=== PATIENT | male | born 1950 | race Caucasian/White ===

== ENCOUNTER 2016-06-21 15:32 | Inpatient (IN) | payer OTHER ==
[~2016-06-21] VITALS: Ht 182.9 cm; Wt 90.3 kg
--- NOTE | ~2016-06-21 | DS ---
PATIENT:SATNAM CASTILLO :46 MEDICAL RECORD: [id number] DISCHARGE SUMMARY ADMISSION DATE: 06/21/16 DISCHARGE DATE: 06/24/16 DISCHARGE DIAGNOSES: 1. Streptococcal cellulitis, left ankle. 2. Hypertension, uncontrolled. 3. Nicotine addiction. CONSULTANTS: Dr. Ruff. HOSPITAL COURSE: A 66-year-old male admitted with increasing erythema and severe pain above his left ankle medially. He denied any trauma or insect bites. Initially, felt to have gout, but he developed fever, advancing erythema and some dark, necrotic-appearing skin changes. He was admitted, placed on IV Rocephin and vancomycin. The patient gradually improved. X-ray showed no evidence of osteomyelitis. Dr. Ruff from [place] was consulted. Bullae formation did occur with some drainage from the bullae. At this time, currently, the cultures are pending. The patient has dramatically improved. Erythema has decreased in size approximately 50%. He is able to bear weight now with minimal pain. Blood pressure did get quite elevated, 180/95, and medications have been adjusted. He was discharged today on improved condition, has close followup in my office in [address] Ruff recommended Keflex 500 mg q.8 hours for the next week until his wound is healed. He will also use topical Neosporin. Dressing changes were reviewed with his today, will be done t.i.d. DISCHARGE MEDICATIONS: Keflex 500 mg p.o. t.i.d. for 1 week, hydrocodone ____ q.4 hours for pain, Norvasc 5 mg p.o. daily, lisinopril 20 mg p.o. daily, Neosporin ophthalmic ointment apply topically t.i.d. to wound and cover with 4 x 4, omega-3 fish oil 1 cap daily, aspirin 81 mg daily. DIET: Regular. ACTIVITY: Progress as tolerated. Return to clinic to see me in 6 days. TRANSINT:[id number] Voice Confirmation ID: [id number] DOCUMENT ID: [id number] BRADLY MYRICK MD CC: [id number] DICTATION DATE: 06/24/16 0747 SPRAY BOOTH OPERATOR: 06/24/16 1033 DIS IN 06/24/16 [id number] [place] [address]
[~2016-06-21 15:32] MED LIST: LOTREL 5/20 MG1 CAP; PRILOSEC20 MG PO; SURFAK240 MG PO; VICODIN 5/500 T1 TAB PO
[2016-06-21] MEDS ORDERED: FISH OIL 1,0001 CA1 PO (16:10)
[2016-06-21] MEDS ORDERED: INDOCIN25 MG PO (16:10)
[2016-06-21] MEDS ORDERED: BAYER CHEWABLE81 MG PO (16:11)
[2016-06-21] MEDS ORDERED: MUCINEX DM ER1 EAC1 PO (16:12)
[2016-06-21 16:55] VITALS: BP 124/77; BMI 27.0
[2016-06-21 17:44] LABS: ERYTHROCYTE SEDIMENTATION RATE 70 mm/hr (0-20)
[2016-06-21 20:00] VITALS: BP 155/96
--- NOTE | 2016-06-21 21:00 | NUR ---
STUDENTS AT BEDSIDE WITH INSTRUCTOR STARTING AN IV. PATIENT DENIES OTHER NEEDS AT THIS TIME. BED IN LOWEST POSITION AND CALL LIGHT WITHIN REACH. ENCOURAGED PATIENT TO CALL IF HE HAS FURTHER NEEDS.
[2016-06-22] VITALS: BP 152/95
[2016-06-22 04:00] VITALS: BP 145/90
[2016-06-22 07:47] LABS: BASOPHILS 0.3 % (0.0-2.0); HEMATOCRIT 42.4 % (42.0-54.0); HEMOGLOBIN 14.4 g/dL (13.5-17.5); IMMATURE GRANULOCYTES 1.5 % (0-5); LYMPHOCYTES 15.5 % (15-50); MCH 33.3 pg (26.0-34.0); MCV 97.9 fL (80.0-100.0); MEAN PLATELET VOLUME 9.7 fL (7.4-10.4); MONOCYTES 13.1 % (2-11); NEUTROPHILS 68.6 % (40-80); RBC 4.33 10x6/uL (4.20-6.10); RDW 12.9 % (11.5-14.5); WBC 12.9 10x3/uL (4.8-10.8)
[2016-06-22 07:48] LABS: PLATELET COUNT 289 10x3/uL (130-400)
--- NOTE | 2016-06-22 07:51 | NUR ---
PT AOX4 RESP EVEN AND NONLABORED PT DENIES NEEDS AT THIS TIME IV TO RIGHT FOREARM PULLED OUT BY PT. WILL RESTART ONE SOON POSSIBLE. BED AT LOWEST SETTING CALL LIGHT WITHIN REACH WILL CONTINUE TO MONITOR
[2016-06-22 08:01] LABS: CALC OSMOLALITY 279 mosm/kg (275-300); CALCIUM 9.6 mg/dL (8.5-10.1); CARBON DIOXIDE 28.8 mmol/L (21.0-32.0); CHLORIDE - SERUM 105 mmol/L (98-107); GLUCOSE 118 mg/dL (74-106); SODIUM 140 mmol/L (136-145); UREA NITROGEN 12 mg/dL (7-18); eGFR NON AFRICAN AMERICAN 79 mL/min (90-120)
[2016-06-22 09:09] VITALS: BP 139/86
[2016-06-22 11:41] VITALS: BP 180/95
[2016-06-22 14:31] VITALS: Ht 182.9 cm; Wt 90.3 kg
--- NOTE | 2016-06-22 14:39 | NUR ---
Patient Name: SATNAM CASTILLO Admission Status: Urgent Accout number: [id number] Admission Date: 06-21-2016 : 1950 Admission Diagnosis: Attending: MOON Current LOS: 1 Anticipated DC Date: 06-25-2016 Planned Disposition: Home Primary Insurance: [facility] Discharge Planning Comments: CM MET WITH PATIENT REGARDING D/C NEEDS AND PLANS. PATIENT STATED HE LIVES WITH HIS AND SHE WILL DRIVE HIM HOME AT DISCHARGE. PATIENT HAS 1 STEP W/O RAIL TO ENTER HOME AND NO STAIRS INSIDE. PATIENTS PCP IS DR. MYRICK AND PHARMACY IS [facility] [address] [facility]. PATIENT IS INDEPENDENT WITH HIS CARE AND HAS NO DME AT HOME. PATIENT HAS NOT HAD HOME HEALTH AND DOES NOT WANT IT AT DISCHARGE. CM WILL CONTINUE TO FOLLOW PATIENT WITH D/C NEEDS AND PLANS. PCP [facility] [address] [facility]- [phone] LUPILLO THOMPSON () [phone] Geriatric Assistant: Brandi Johnson Is the patient Alert and Oriented? Yes 0 * How many steps to enter\exit or inside your home? 1 W/RAILS 0 * PCP DR. MYRICK 0 * [facility] [address] [facility] 0 * Preadmission Environment Home with Family 0 * ADLs Independent 0 * Equipment None 0 * List name and contact numbers for known caregivers / representatives who currently or will assist patient after discharge: ARNALDO THOMPSON () [phone] * Community resources currently utilized None 0 * Additional services required to return to the preadmission environment? Yes 0 * Can the patient safely return to the preadmission environment? Yes 0 * Has this patient been hospitalized within the prior 30 days at any hospital? No 0 Grand Total: 0
--- NOTE | 2016-06-22 19:00 | NUR ---
PATIENT IN BED WATCHING TV. HOB 40 DEGREES. AAOX4. RR EVEN AND UNLABORED. 0 S/S OF DISTRESS. STATES PAIN IS A 3/10. IV TO RIGHT FA PATENT WITH NO REDNESS OR SWELLING. SRX1. BED LOW. CALL LIGHT WITHIN REACH.
[2016-06-22 19:51] VITALS: BP 161/96
--- NOTE | 2016-06-22 22:00 | NUR ---
ASSESSMENT COMPLETE. PATIENT STATES PAIN IS THE SAME BUT DOES NOT WANT PAIN MEDICATION. AT BEDSIDE.
[2016-06-22 23:41] VITALS: BP 180/95
--- NOTE | 2016-06-23 02:23 | NUR ---
PATIENT SLEEPING WITH NO DISTRESS NOTED. CALL LIGHT WITHIN REACH.
[2016-06-23 03:46] LABS: CALC OSMOLALITY 278 mosm/kg (275-300); CALCIUM 9.5 mg/dL (8.5-10.1); CHLORIDE - SERUM 103 mmol/L (98-107); CREATININE - SERUM 0.9 mg/dL (0.6-1.3); GLUCOSE 123 mg/dL (74-106); POTASSIUM - SERUM 3.9 mmol/L (3.5-5.1); SODIUM 140 mmol/L (136-145); UREA NITROGEN 11 mg/dL (7-18); VANCOMYCIN - TROUGH 7.8 ug/mL (10.0-20.0); eGFR NON AFRICAN AMERICAN 89 mL/min (90-120)
[2016-06-23 04:01] VITALS: BP 152/95
[2016-06-23 05:21] LABS: APPEARANCE CLEAR (CLEAR); COLOR STRAW (YELLOW); LEUKOCYTE ESTERASE NEGATIVE (NEGATIVE); NITRITE NEGATIVE (NEGATIVE); PROTEIN NEGATIVE (NEGATIVE); SPECIFIC GRAVITY 1.005 (1.005-1.020)
[2016-06-23 05:22] LABS: BILIRUBIN NEGATIVE (NEGATIVE); GLUCOSE NEGATIVE (NEGATIVE); KETONE NEGATIVE (NEGATIVE); UROBILINOGEN NORMAL (NORMAL)
--- NOTE | 2016-06-23 07:32 | HP ---
PATIENT: SATNAM CASTILLO MEDICAL RECORD: [id number] ACCOUNT: [id number] LOCATION:D.[place] : [birth year] ADMISSION DATE: 06/21/16 HISTORY AND PHYSICAL EXAMINATION REASON FOR ADMISSION: Cellulitis of the left lower extremity, failing outpatient therapy. HISTORY OF PRESENT ILLNESS: The patient is a 66-year-old male smoker, who noticed onset of redness and severe pain in his left ankle and just above the ankle on 06/12/2016. He came to our office on the . He was afebrile, but had heat and warmth over the left medial malleolus and just above it. There was no other discoloration. There was no sign of any skin breakdown. They thought he might have gout, though his uric acid level returned at 5.6. He was placed on indomethacin and allopurinol, but did not improve and came back today. He is having more pain and swelling in the leg. He says his right ankle is starting to hurt some now. He denies any fevers and he might have some night sweats. He denies any injury as well. PAST MEDICAL HISTORY: Carpal tunnel syndrome, history of lumbar discitis, essential hypertension, and longstanding nicotine abuse. PAST SURGICAL HISTORY: Had an inguinal hernia repair on the left in 2011. He had a normal noninvasive cardiac stress test in 2005. FAMILY HISTORY: His father at 88, had asthma and COPD, and mother at 83 from CHF. SOCIAL HISTORY: He is a 1 to 2-pack a day smoker for 50 years. He denies heavy alcohol use. 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 He is and has grandchildren. HOME MEDICATIONS: Amlodipine/benazepril /, one p.o. q.a.m. He is on Indocin 25 mg t.i.d. for the last 4 days. Also, he has been on terbinafine 250 mg p.o. daily. ALLERGIES: PENICILLIN CAUSING RASH. REVIEW OF SYSTEMS: GENERAL: He has been a litle rundown since onset of ankle issues, but denies unintentional weight loss, fever or poor appetite. HEENT: No recent new visual change, sinus congestion, sore throat or hearing difficulty. RESPIRATORY: He has chronic cough, but nonproductive. He has had no sputum production or shortness of breath. He had pulmonary function test 2 years ago. CARDIAC: No exertional chest pain, claudication or edema. GASTROINTESTINAL: No nausea, vomiting, change in stools or blood per rectum. GENITOURINARY: Has nocturia once nightly. No dysuria. ENDOCRINE: Denies polyuria, polydipsia, heat or cold intolerance. NEUROLOGIC: No history of stroke, TIA, or vascular headaches. INTEGUMENT: He has erythematous painful rash on his left inner ankle above the ankle circumferentially. It extends to the mid calf. It is very tender to the touch. There was no breakdown of skin noted, but there is a very unusual appearing macular black subcutaneous discoloration that is irregular, 2.5 x 2.5 cm on 1 macule and the other 2 are approximately 0.5 x 0.5. A total of 3 HISTORY AND PHYSICAL [id number] CASTILLOSATNAM macular discolorations. Neurologically, he is grossly intact. LABORATORY DATA: A stat lab in the office showed a white count of 14.6 thousand with 67% neutrophils, H&H is 14.7 and 43.5 respectively, and platelet count is 340,000. BMP is normal. ASSESSMENT: 1. Atypical cellulitis, left lower extremity, failing outpatient therapy. 2. Nicotine abuse. 3. Hypertension. PLAN: The patient is admitted for IV antibiotics to include, but not limited to vancomycin. HE DOES HAVE A PENICILLIN ALLERGY. We will have ID consult as well. Further workup pending clinical course. TRANSINT:[id number] Voice Confirmation ID: [id number] DOCUMENT ID: [id number] BRADLY MYRICK MD at 0732 CC: [id number] DICTATION DATE: 06/21/16 1335 FOREPART REDUCER: 06/21/16 1935 ADM IN [facility] [address] [place] [address]
[2016-06-23 08:23] VITALS: BP 165/101
--- NOTE | 2016-06-23 08:28 | NUR ---
AWAKE AND ALERT. ORIENTED X3. NO C/O AT THIS TIME. LUNGS ARE CLEAR BILATERALLY, NO COUGH NOTED. SKIN IS INTACT WITHOUT REDNESS EXCEPT REDNESS TO RIGHT ANKLE AREA AND REDNESS WITH 2 EMILIA SIZED BLACK BLISTERS. CULTURE OBTAINED FROM LEFT ANKLE AND SENT TO LAB. GIVEN SCHEDULED BP MEDS AT THIS TIME. WILL MONITOR. AT BEDSIDE. DENIES NEEDS.
--- NOTE | 2016-06-23 09:30 | NUR ---
RECHECK ON BP 147/90. WILL CONTINUE TO MONITOR.
--- NOTE | 2016-06-23 12:30 | NUR ---
MANUAL BP 146/102. GIVEN O.1 MG CLONIDIN FOR SAME. WILL MONITOR.
[2016-06-23 13:05] VITALS: BP 163/103
[2016-06-23 16:12] VITALS: BP 152/95
--- NOTE | 2016-06-23 16:30 | NUR ---
IV TO RIGHT FOREARM LEAKING. RESITED TO RIGHT FOREARM AFTER 2 ATTEMPTS WITH 20G. TOLERATED WITHOUT C/O DISCOMFORT.
[2016-06-23 19:00] VITALS: BP 148/94
--- NOTE | 2016-06-23 19:34 | NUR ---
ATE ABOUT HALF OF SUPPER. VISITORS AT BEDSIDE. NO CHANGES NOTED. DENIES NEEDS.
--- NOTE | 2016-06-24 00:58 | NUR ---
REC'D PATIENT WALKING AROUND ROOM. DAUGHTER WAS AT BEDSIDE. NO DISTRESS NOTED. DENIED PAIN AT THIS TIME. IS WANTING SOME COFFEE. DENIED FURTHER NEEDS AT THIS TIME. IS CONCERN ABOUT BLD PRESSURE. WILL MONITOR THROUGHOUT THE NIGHT. BED LOW, LOCKED, CALL LIGHT IN REACH.
--- NOTE | 2016-06-24 03:18 | NUR ---
PATIENT IS RESTING IN BED. IS AT BEDSIDE. DENIES PAIN AT THIS TIME. DENIES FURTHER NEEDS AT THIS TIME. NO DISTRESS NOTED. INSTRUCTED TO CALL IF NEEDED ANYTHING. BED LOW, LOCKED, CALL LIGHT IN REACH.
[2016-06-24 04:00] VITALS: BP 157/98
--- NOTE | 2016-06-24 06:24 | NUR ---
PATIENT RESTING IN BED. AT BEDSIDE. DENIES PAIN AT THIS TIME. DENIES FURTHER NEEDS AT THIS TIME. NO DISTRESS NOTED. INSTRUCTED TO CALL IF NEEDED ANYTHING. BED LOW, LOCKED, CALL LIGHT IN REACH.
[2016-06-24] MEDS ORDERED: NORVASC5 MG PO (07:40)
[2016-06-24] MEDS ORDERED: LISINOPRIL10 MG PO (07:41)
[2016-06-24] MEDS ORDERED: HYDROCODON-ACE1 EAC7 PO (07:42)
[2016-06-24] MEDS ORDERED: NEOSPORIN OINTM15 GM TP (07:44)
--- NOTE | 2016-06-24 07:47 | NUR ---
AWAKE AND ALERT. ORIENTED X3. NO C/O AT THIS TIME. AT BEDSIDE. LUNGS ARE CLEAR BILATERALLY, NO COUGH NOTED. SKIN IS INTACT WITHOUT REDNESS EXCEPT REDNESS TO RIGHT ANKLE WHICH IS IMPROVED FROM YESTERDAY AND REDNESS WITH BLACKENED BLISTERS TO LEFT ANKLE. IV TO RIGHT FOREARM PATENT WITHOUT REDNESS AT INSERTION SITE. DENIES NEEDS.
[2016-06-24] MEDS ORDERED: KEFLEX500 MG PO (07:48)
--- NOTE | 2016-06-24 08:50 | NUR ---
DISCHARGED TO HOME AMBULATORY [facility] . DISCHARGE INSTRUCTIONS GIVEN BOTH VERBALLY AND WRITTEN. ALL QUESTIONS ANSWERED. NEW PRESCRIPTIONS EFAXED TO PHARMACY OF CHOICE. IV TO RIGHT FOREARM D/C WITH CATHETER INTACT.
[2016-06-24 09:29] VITALS: BP 170/106
--- NOTE | 2016-06-24 15:42 | NUR ---
LATE ENTRY: PATIENT DISCHARGED HOME TODAY - FAMILY DRIVING HIM. PATIENT REF. HOME HEALTH AND HAD NO OTHER NEEDS.
== END 2016-06-24 08:50 | disposition home or self-care (01) | DRG 603 ==
LOC: D.MS 15:32
PROVIDERS: ADMIT Family Medicine
DX: L03.116 Cellulitis of left lower limb (principal); B95.5 Unspecified streptococcus as the cause of diseases classified elsewhere; I10 Essential (primary) hypertension; B35.1 Tinea unguium; F17.200 Nicotine dependence, unspecified, uncomplicated

== ENCOUNTER 2017-07-21 13:00 | Inpatient (IN) | payer OTHER, MEDICARE ==
[~2017-07-21] VITALS: Ht 182.9 cm; Wt 93.0 kg
--- NOTE | ~2017-07-21 | OP ---
PATIENT NAME: SATNAM CASTILLO MEDICAL RECORD: [id number] :46 LOCATION:D. D.2220 ADMISSION DATE:07/21/17 SURGEON: HOANG BHAGAT MD DATE OF OPERATION: 07/25/2017 This is an assistance note. I assisted Dr. PRUDENCE Jordan with placement of a colonic stent under endoscopic guidance as well as fluoroscopic guidance. My involvement of the case was minor. It involved some manipulation of the colonoscope. Some advancement of the wires. Some advancement of the stent. I attempted balloon dilation of the colonic stent. TRANSINT:[id number] Voice Confirmation ID: [id number] DOCUMENT ID: [id number] HOANG BHAGAT MD at 1227 CC: [id number] DICTATION DATE: 07/25/17 1249 FUR SEWER: 07/25/17 1306 DIS IN 07/25/17 [id number] [place] [address]
--- NOTE | ~2017-07-21 | OP ---
PATIENT NAME: SATNAM CASTILLO MEDICAL RECORD: [id number] :[birth year] LOCATION:D.MS [place] ADMISSION DATE:07/21/17 SURGEON: SEBASTIÁN STEEL MD DATE OF OPERATION: 07/25/2017 SURGEON: Sebastián Steel MD (JJ) PRECINCT POLICE SERGEANT: Dr. Efrain Jones PREOPERATIVE DIAGNOSIS: Obstructing metastatic colon cancer. POSTOPERATIVE DIAGNOSIS: Obstructing metastatic colon cancer. PROCEDURE PERFORMED: Colonoscopy with biopsy and fluoroscopic-guided colonic stent placement. ANESTHESIA: General. COMPLICATIONS: None. SPECIMENS: Frozen section and permanent specimen biopsies of colonic mass at 110 cm. Case was grossly contaminated. OPERATIVE COURSE: After consent was obtained, the patient was taken to the operating room and placed in the supine position on the operating table. Next, general anesthesia was given. A timeout was taken to confirm the correct patient and procedure. The patient was then placed into lithotomy with stirrups. Digital rectal exam was performed. No masses were found. The colonoscope was inserted in the rectum. The rectum was insufflated under direct endoscopic guidance. The scope was advanced to approximately 110 cm with fluoroscopy at the splenic flexure. A large ulcerated obstructing tumor was identified. Multiple cold biopsies were taken. It was sent for both permanent pathology and frozen section. Next, a 0.035 StiffFlex wire was passed through the colonoscope. The wire was available to be passed across the obstruction under fluoroscopic guidance. The wire was followed to the hepatic flexure. At this time, the colonoscope was removed. A colorectal WallFlex stent was then delivered across the wire 25 x 120 mm. Under fluoroscopic guidance, the stent was deployed across the lesion and the delivery device was removed as well as the wire. The scope was then advanced. The scope was then placed back into the rectum. It was advanced to the splenic flexure. The scope was advanced through the colonic stent. At this time, the scope was used to decompress the colon as it was withdrawn. At the end of the case, all needle and instrument counts were correct. No complications occurred. The patient was extubated and transferred to the PACU in stable condition. TRANSINT:[id number] Voice Confirmation ID: [id number] DOCUMENT ID: [id number] OPERATIVE REPORT [id number] SATNAM CASTILLO SEBASTIÁN STEEL MD at 1520 CC: [id number] DICTATION DATE: 07/25/17 1239 LINE PREP COOK: 07/25/17 1305 ADM IN [facility] [address] [id number]
--- NOTE | ~2017-07-21 | HP ---
PATIENT: SATNAM CASTILLO MEDICAL RECORD: [id number] ACCOUNT: [id number] LOCATION:D.[facility] [place] : [birth year] ADMISSION DATE: 07/21/17 HISTORY AND PHYSICAL EXAMINATION REASON FOR ADMISSION: Severe left lower quadrant abdominal pain. HISTORY OF PRESENT ILLNESS: The patient is a 67-year-old male who had shingles in his left lower quadrant, approximately 3 months ago. He had been on gabapentin, but developed some visual disturbance when he had stopped it 5 months ago. He had felt well until yesterday, developed onset of some fairly significant left lower quadrant and to left mid axillary line pain. He had normal BM the day before, had no fever. The pain became more intense such that walking cause the pain to increase. Any coughing or sneezing caused the pain to be worse. He could barely touch his abdomen without excruciating pain. He denies dysuria. He came to the office for this reason and was exquisitely tender on exam of the left lower quadrant with rebound, peritoneal signs. White count was 17,000 with left shift and normal UA. For that reason, he has been admitted to the hospital for severe left lower quadrant abdominal pain and acute abdomen. PAST MEDICAL HISTORY: Cellulitis of the left lower extremity on 06/21, history of carpal tunnel syndrome, lumbar discitis, essential hypertension, longstanding nicotine use. PAST SURGICAL HISTORY: Inguinal hernia repair of the left in 2011. Noninvasive cardiac stress test in 2005. FAMILY HISTORY: Mother at 83 from CHF. Father at 88, had asthma and COPD. 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 He is 1-2 pack a day smoker for 51 years. He denies heavy alcohol use. He is and has grandchildren. HOME MEDICATIONS: Amlodipine/benazepril 5/20 one p.o. b.i.d., potassium chloride 10 mEq a day, Dyazide 1 q.a.m., clonidine 0.1 mg p.o. q.6. hours p.r.n. systolic blood pressure over 170. ALLERGIES: BETAMETHASONE and PENICILLIN. REVIEW OF SYSTEMS: CONSTITUTIONAL: Significantly felt well until yesterday. No fever. HEENT: No recent visual change, sinus congestion, or sore throat. RESPIRATORY: No SOB or cough. CARDIAC: No exertional chest pain, claudication, or edema. GASTROINTESTINAL: He has had no nausea or change in stools. He has had exquisite pain to his left lower quadrant and up to left mid quadrant on the left side. He has noticed pain with walking. GENITOURINARY: No dysuria. He has nocturia once nightly. ENDOCRINE: Denies polyuria, polydipsia, heat or cold intolerance. NEUROLOGIC: No history of stroke, TIA, or vascular headaches. INTEGUMENT: No rash or itching. PSYCHIATRIC: Denies depressed mood. HISTORY AND PHYSICAL [id number] SATNAM CASTILLO PHYSICAL EXAMINATION: VITAL SIGNS: Temperature is 99 degrees Fahrenheit, blood pressure 122/64, weight is 207. Height 72 inches, BMI 28.1, heart rate 80. HEENT: Normocephalic. Eyes are clear. NECK: No bruits or masses. CHEST: Clear. HEART: Without murmur. ABDOMEN: Slightly protuberant with hypoactive bowel sounds. He has a referred pain on palpation of the right lower quadrant into the left lower quadrant. He has exquisite tender to touch and mild palpation in the left lower quadrant in the sigmoid area. No rebound is noted. He has hyperpigmentation from previous shingles in the left lower quadrant into the left CVA angle, but he is not tender here or have new blisters arising. NEUROLOGICAL: Grossly intact. EXTREMITIES: No CC&E. LABORATORY DATA: His white count is elevated with 17,390 white cells with 84% neutrophils, H&H 11.2 and 34.4, platelet count 370,000. His urinalysis is dark yellow, specific gravity is 1.015, protein is 30 mg per deciliter. Urine shows 0-2 red and white cells, trace bacteria. Flat and upright abdominal series shows decreased air throughout the abdominal cavity. No evidence of obstruction, some stool in the pelvis and left lower quadrant. ASSESSMENT: 1. Acute abdomen, left lower quadrant pain, etiology unknown. 2. Leukocytosis. 3. Subacute shingles. 4. Hypertension. 5. Smoker. 6. History of cellulitis of right lower extremity, resolved. PLAN: The patient will be admitted and held n.p.o., placed on IV fluids, placed on IV Levaquin and Flagyl. A stat CT scan of the abdomen and pelvis with contrast with results to follow. TRANSINT:[id number] Voice Confirmation ID: [id number] DOCUMENT ID: [id number] BRADLY MYRICK MD at 1214 CC: [id number] DICTATION DATE: 07/21/17 1352 SOCIAL INSURANCE ANALYST: 07/21/17 1417 DIS IN 07/25/17 [facility] [address] [id number]
[~2017-07-21 13:00] MED LIST changes: +BAYER CHEWABLE81 MG PO; +FISH OIL 1,0001 CA1 PO; +HYDROCODON-ACE1 EAC7 PO; +INDOCIN25 MG PO; +KEFLEX500 MG PO; +LISINOPRIL10 MG PO; +MUCINEX DM ER1 EAC1 PO; +NEOSPORIN OINTM15 GM TP; +NORVASC5 MG PO
[2017-07-21] MEDS ORDERED: ZESTRIL20 MG PO (15:16)
[2017-07-21] MEDS ORDERED: VITAMIN B COMPL1 TAB PO (15:17)
[2017-07-21 15:18] VITALS: BP 141/92; BMI 27.8
[2017-07-21 18:26] LABS: APTT 32.5 SECONDS (22.8-39.4); INR 1.11 (0.85-1.17); PROTIME 13.9 SECONDS (11.6-15.0)
[2017-07-21 18:43] LABS: ALBUMIN 2.7 g/dL (3.4-5.0); BILIRUBIN - DIRECT 0.14 mg/dL (0.00-0.30); BILIRUBIN - INDIRECT 0.34 mg/dL (0.00-1.00); BILIRUBIN - TOTAL 0.48 mg/dL (0.2-1.3); PROTEIN - SERUM 6.7 g/dL (6.4-8.2)
[2017-07-21 22:29] VITALS: BP 148/96
[2017-07-22 04:53] VITALS: BP 133/83
[2017-07-22] MEDS ORDERED: LOTREL 5/20 MG1 CAP (09:25)
[2017-07-22 09:30] VITALS: BP 135/91
[2017-07-22 12:30] VITALS: BMI 27.8
[2017-07-22 13:03] VITALS: BP 149/104
[2017-07-22 14:35] VITALS: BP 134/81
[2017-07-22 20:00] VITALS: BP 123/80
[2017-07-23] VITALS: BP 144/94
[2017-07-23 04:00] VITALS: BP 147/96
[2017-07-23 06:39] LABS: CALC OSMOLALITY 281 mosm/kg (275-300); CALCIUM 8.8 mg/dL (8.5-10.1); CARBON DIOXIDE 27.7 mmol/L (21.0-32.0); CHLORIDE - SERUM 106 mmol/L (98-107); CREATININE - SERUM 0.8 mg/dL (0.6-1.3); GLUCOSE 116 mg/dL (74-106); SODIUM 141 mmol/L (136-145); UREA NITROGEN 12 mg/dL (7-18); eGFR NON AFRICAN AMERICAN > 90 mL/min (90-120)
[2017-07-23 07:42] VITALS: BP 132/88
[2017-07-23 08:17] VITALS: Ht 182.9 cm; Wt 93.0 kg
[2017-07-23 12:18] VITALS: BP 139/92
[2017-07-23 15:49] VITALS: BP 134/83
[2017-07-23 20:00] VITALS: BP 141/101
[2017-07-24] VITALS: BP 157/92
[2017-07-24 04:00] VITALS: BP 159/97
[2017-07-24 05:40] LABS: BASOPHILS 0.2 % (0-2); EOSINOPHILS 0 % (0-7); IMMATURE GRANULOCYTES 1.6 % (0-5); LYMPHOCYTES 10.3 % (15-50); MCH 28.7 pg (26.0-34.0); MCHC 32.3 g/dL (31.0-37.0); MCV 88.8 fL (80.0-100.0); NEUTROPHILS 77.9 % (40-80); PLATELET COUNT 317 10x3/uL (130-400); RBC 3.49 10x6/uL (4.20-6.10); RDW 16.4 % (11.5-14.5); WBC 12.8 10x3/uL (4.8-10.8)
[2017-07-24 05:42] LABS: CALC OSMOLALITY 256 mosm/kg (275-300); CALCIUM 8.7 mg/dL (8.5-10.1); CARBON DIOXIDE 27.3 mmol/L (21.0-32.0); CHLORIDE - SERUM 101 mmol/L (98-107); CREATININE - SERUM 0.8 mg/dL (0.6-1.3); GLUCOSE 111 mg/dL (74-106); SODIUM 128 mmol/L (136-145); UREA NITROGEN 11 mg/dL (7-18); eGFR NON AFRICAN AMERICAN > 90 mL/min (90-120)
[2017-07-24 09:15] VITALS: BP 154/90
[2017-07-24 11:33] VITALS: BP 133/86
[2017-07-24 16:10] VITALS: BP 143/94
[2017-07-24 22:40] VITALS: BP 158/98
[2017-07-25 03:53] VITALS: BP 107/73
[2017-07-25 05:54] LABS: BASOPHILS 0.1 % (0-2); EOSINOPHILS 0.2 % (0-7); HEMATOCRIT 33.4 % (42.0-54.0); HEMOGLOBIN 10.6 g/dL (13.5-17.5); IMMATURE GRANULOCYTES 1.9 % (0-5); LYMPHOCYTES 13.5 % (15-50); MCH 28.2 pg (26.0-34.0); MCHC 31.7 g/dL (31.0-37.0); MCV 88.8 fL (80.0-100.0); MEAN PLATELET VOLUME 9.3 fL (7.4-10.4); MONOCYTES 10.4 % (2-11); NEUTROPHILS 73.9 % (40-80); PLATELET COUNT 344 10x3/uL (130-400); RBC 3.76 10x6/uL (4.20-6.10); RDW 16.8 % (11.5-14.5); WBC 13.3 10x3/uL (4.8-10.8)
[2017-07-25 06:03] LABS: CALC OSMOLALITY 281 mosm/kg (275-300); CALCIUM 9.2 mg/dL (8.5-10.1); CARBON DIOXIDE 28.8 mmol/L (21.0-32.0); CHLORIDE - SERUM 105 mmol/L (98-107); GLUCOSE 107 mg/dL (74-106); POTASSIUM - SERUM 3.5 mmol/L (3.5-5.1); SODIUM 142 mmol/L (136-145); UREA NITROGEN 11 mg/dL (7-18); eGFR NON AFRICAN AMERICAN 79 mL/min (90-120)
[2017-07-25 08:23] VITALS: BP 160/107
[2017-07-25 13:36] VITALS: BP 137/66
[2017-07-25] MEDS ORDERED: MIRALAX17 GM PO (16:00)
[2017-07-25] MEDS ORDERED: HYDROCODON-ACE1 EAC7 PO (16:00)
== END 2017-07-25 17:32 | disposition home or self-care (01) | DRG 375 ==
LOC: D.SDCHOLD 13:00 → D.MS 13:00
PROVIDERS: Family Medicine; Surgery
PROC: 0JH60WZ Insertion of Totally Implantable Vascular Access Device into Chest Subcutaneous Tissue and Fascia, Open Approach (ICD-10-PCS; 2017-07-22)
PROC: 02HV33Z Insertion of Infusion Device into Superior Vena Cava, Percutaneous Approach (ICD-10-PCS; 2017-07-22)
PROC: B5181ZA Fluoroscopy of Superior Vena Cava using Low Osmolar Contrast, Guidance (ICD-10-PCS; 2017-07-22)
PROC: 0DBL8ZX Excision of Transverse Colon, Via Natural or Artificial Opening Endoscopic, Diagnostic (ICD-10-PCS; 2017-07-25)
PROC: 0D7L8DZ Dilation of Transverse Colon with Intraluminal Device, Via Natural or Artificial Opening Endoscopic (ICD-10-PCS; principal; 2017-07-25 10:00)
DX: C18.4 Malignant neoplasm of transverse colon (principal); C78.7 Secondary malignant neoplasm of liver and intrahepatic bile duct; B02.9 Zoster without complications; I10 Essential (primary) hypertension; F17.200 Nicotine dependence, unspecified, uncomplicated; K66.9 Disorder of peritoneum, unspecified

== ENCOUNTER → 2017-09-19 07:48 | Outpatient (CLI) | payer OTHER, MEDICARE ==
[2017-07-23 08:17] VITALS: BMI 27.8
[~2017-09-19 07:48] MED LIST changes: +MIRALAX17 GM PO; +VITAMIN B COMPL1 TAB PO; +ZESTRIL20 MG PO
== END | disposition home or self-care (01) ==
LOC: D.CT 07:48
DX: C18.4 Malignant neoplasm of transverse colon (principal); C78.7 Secondary malignant neoplasm of liver and intrahepatic bile duct

== ENCOUNTER → 2017-11-17 13:35 | Outpatient (CLI) | payer OTHER, MEDICARE ==
[2017-07-23 08:17] VITALS: BMI 27.8
== END | disposition home or self-care (01) ==
LOC: D.CT 11-16 14:00
DX: C18.4 Malignant neoplasm of transverse colon (principal); C78.7 Secondary malignant neoplasm of liver and intrahepatic bile duct

== ENCOUNTER 2017-12-12 07:55 | Inpatient (IN) | payer OTHER, MEDICARE ==
[2017-12-09 12:37] LABS: BASOPHILS 0.5 % (0-2); EOSINOPHILS 0.7 % (0-7); HEMATOCRIT 31.7 % (42.0-54.0); HEMOGLOBIN 10.3 g/dL (13.5-17.5); IMMATURE GRANULOCYTES 5.5 % (0-5); MCH 32.9 pg (26.0-34.0); MCHC 32.5 g/dL (31.0-37.0); MCV 101.3 fL (80.0-100.0); MONOCYTES 10.6 % (2-11); NEUTROPHILS 65.7 % (40-80); RBC 3.13 10x6/uL (4.20-6.10); RDW 18.8 % (11.5-14.5); WBC 9.6 10x3/uL (4.8-10.8)
[2017-12-09 12:48] LABS: APTT 33.9 SECONDS (22.8-39.4); CALC OSMOLALITY 279 mosm/kg (275-300); CARBON DIOXIDE 29.3 mmol/L (21.0-32.0); CHLORIDE - SERUM 106 mmol/L (98-107); CREATININE - SERUM 0.9 mg/dL (0.6-1.3); GLUCOSE 99 mg/dL (74-106); INR 1.04 (0.85-1.17); POTASSIUM - SERUM 3.9 mmol/L (3.5-5.1); PROTIME 13.2 SECONDS (11.6-15.0); SODIUM 140 mmol/L (136-145); UREA NITROGEN 16 mg/dL (7-18); eGFR NON AFRICAN AMERICAN 89 mL/min (90-120)
[2017-12-09 13:10] LABS: PLATELET COUNT 189 10x3/uL (130-400)
[~2017-12-12] VITALS: Ht 182.9 cm; Wt 78.0 kg
--- NOTE | ~2017-12-12 | MORECARE ---
CASE MANAGEMENT DISCHARGE SUMMARY PATIENT: SATNAM CASTILLO UNIT: [id number] ADM DATE: 12/12/17 AGE: 67 : 48 SEX: M ROOM/BED: D.2232 AUTHOR: TERRI,DOC PHYSICIAN: REFERRING PHYSICIAN: SEBASTIÁN STEEL MD DATE OF SERVICE: 12/16/17 Discharge Plan Patient Name: SATNAM CASTILLO Facility: [facility]:[place] : 1950 Planned Disposition: Home Anticipated Discharge Date: Discharge Date: 12/15/2017 Expected LOS: 0 Initial Reviewer: [email or web address] Initial Review Date: 12/14/2017 Generated: 12/16/17 5:58 pm Comments DCP- Discharge Planning Updated by [email or web address]: Tran Henson on 12/14/17 12:[address] Patient Name: SATNAM CASTILLO Admission Status: Elective Accout number: [id number] Admission Date: 12-12-2017 : 1950 Admission Diagnosis: Attending: SEBASTIÁN STEEL Current LOS: 2 Anticipated DC Date: Planned Disposition: Home Primary Insurance: [facility] Discharge Planning Comments: CM met with patient and his to discuss discharge planning. States he lives with his . States he is independent with all ADL's and IADL's. States his will take him home on discharge. States he does not have any outside community resources assisting in the home. States he does not have any DME or need any DME. Declines home health services offered. No needs identified at this time. CM will continue to follow and assist with discharge planning/needs. Economic Analysis Director: Tran Henson DCPIA - Discharge Planning Initial Assessment Updated by [email or web address]: Tran Henson on 12/14/17 1:33 pm * Is the patient Alert and Oriented? Yes * How many steps to enter\exit or inside your home? 1/0 * PCP Dr. Ramirez * [facility] [address] * Preadmission Environment Home with Family * ADLs Independent * Equipment None * List name and contact numbers for known caregivers / representatives who currently or will assist patient after discharge: Rebekah - - [phone] * Verbal permission to speak to the caregivers and representatives has been obtained from the patient. Yes * Community resources currently utilized None * Additional services required to return to the preadmission environment? No * Can the patient safely return to the preadmission environment? Yes * Has this patient been hospitalized within the prior 30 days at any hospital? No Last DP export: 12/14/17 12:44 Patient Name: SATNAM CASTILLO Page [id number] at 1658 All edits/amendments must be made on the electronic document DICTATION DATE: 12/16/171657 HEAD SHIPPER: ANIL 12/16/171657 RPT#: [id number] DC DATE:12/15/17 STATUS: DIS IN [facility] [address] [place] [address] END OF REPORT
--- NOTE | ~2017-12-12 | OP ---
PATIENT NAME: SATNAM CASTILLO MEDICAL RECORD: [id number] :46 LOCATION:[facility] [place] ADMISSION DATE:12/12/17 SURGEON: SEBASTIÁN STEEL MD DATE OF OPERATION: 12/12/2017 SURGEON: Sebastián Steel MD (JJ) PROFESSIONAL SPORTS SCOUT: Sarina Redding APRN PREOPERATIVE DIAGNOSES: 1. Metastatic colon cancer. 2. History of colocolonic stent for obstructing colon cancer. 3. Essential hypertension. 4. Nicotine dependence. POSTOPERATIVE DIAGNOSES: 1. Metastatic colon cancer. 2. History of colocolonic stent for obstructing colon cancer. 3. Essential hypertension. 4. Nicotine dependence. PROCEDURES PERFORMED: 1. Hand-assisted extended left hemicolectomy. 2. Laparoscopic mobilization of splenic flexure. 3. Excision of peritoneal implant. ANESTHESIA: General. COMPLICATIONS: None. SPECIMENS: 1. Transverse and left colon, omentum. 2. Peritoneal implant. Case was clean contaminated. OPERATIVE COURSE: After consent was obtained, the patient was taken to the operating room and placed in supine position on the operating table. Next, general anesthesia was given via endotracheal intubation after a timeout was performed to confirm the correct patient and procedure. Upper midline abdominal incision was made using a 10-blade scalpel. The fascia was incised with electrocautery. Peritoneum was incised with Metzenbaum scissors. Remaining portion of the peritoneum was incised using electrocautery under direct vision. The Lee retractor was placed. 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 Sharp scissor dissection was used to take down the adhesions and transverse colon for the left upper quadrant abdominal wall. The peritoneal mass and tissue identified. The peritoneum was excised using electrocautery and sent for permanent pathology. At this time, 2 additional 5-mm trocars were placed, one in the left lower quadrant and one in the lower midline. The Lee GelPort was placed. The abdominal cavity was insufflated. The white line of Toldt was taken on the descending colon. The left colon was mobilized off the side wall. This dissection continued to the splenic flexure at which time the laparoscopic mobilization of the splenic flexure occurred as well as at this point OPERATIVE REPORT [id number] SATNAM CASTILLO laparoscopic mobilization of the hepatic flexure. Once this was complete, the GelPort retractor was removed. The transverse colon was extracorporealized. The indurated area of the transverse colon mass with the trocor in place easily palpated 8 cm proximal to the lesion was identified. A mesenteric window was created. The proximal transverse colon was divided using a ANETA stapler. Dissection of the mesentery continued down into the Harmonic scalpel until the right branch of the middle colic vessels were identified. A clamp was placed across the middle colic vessels. They were ligated using Harmonic scalpel. They were tied with 2-0 silk suture. The area of clean healthy appearing colon, approximately 8 cm distal to the mass was identified just past the splenic flexure and descending colon. A mesenteric window was created. Again, the colon was transected with the GI stapler. Dissection continued to the mesentery using the Harmonic scalpel until the left branch of the ileocolic vessels were identified. Again, a clamp was placed. They were divided using the Harmonic scalpel and reinforced with a 2-0 silk suture. The remaining portion of the mesentery was taken with the Harmonic scalpel. The transverse colon was sent for permanent pathology. The greater omentum was excised with the transverse colon as a significant portion of it was densely adherent to the transverse colon. At the area inside of the colorectal cancer, there was large liver mets noted within the left lobe of the liver during the operation. This time an end-to-end colorectal anastomosis was performed using 3 firings of the linear ANETA stapler. The staple line was imbricated using 3-0 silk suture. The vas anastomosis was patent. At this time, the abdominal cavity was copiously irrigated and suctioned. Careful attention was paid to hemostasis. The GelPort was placed. The abdomen was again reinsufflated. Again, the abdominal cavity was meticulously inspected in all 4 quadrants. There was no evidence of bowel injury. No evidence of bleeding. At this time, all remaining instruments were removed. The abdomen was desufflated. The GelPort was removed. All members of the OR team changed the gown and gloves. The field was reprepped and the closing table was used from this point forward. The fascia was closed with #1 looped PDS. Skin was closed with jorge. Trocar sites were closed with jorge. The wound was covered with a sterile Tegaderm and sterile dressing. During the case, all needle and instrument counts were correct. No complications occurred. The patient was extubated and returned to the PACU in stable condition. TRANSINT:[id number] Voice Confirmation ID: [id number] DOCUMENT ID: [id number] SEBASTIÁN STEEL MD at 1321 CC: [id number] DICTATION DATE: 12/12/17 1419 RECREATIONAL FACILITIES MOTEL MANAGER: 12/13/17 0625 ADM IN [place] [address] [place] [address]
[~2017-12-12 07:55] MED LIST changes: +FERROUS SULFAT325 MG PO; +FLOMAX0.4 MG PO; +K-TAB10 MEQ PO
[2017-12-12 08:26] VITALS: BP 163/97; BMI 23.1
[2017-12-12 15:10] VITALS: BP 127/78
[2017-12-12 16:50] VITALS: BP 127/70; BMI 23.3
[2017-12-12 21:01] VITALS: BP 149/87
[2017-12-13 05:22] VITALS: BP 127/78
[2017-12-13 05:52] VITALS: BP 142/92
[2017-12-13 05:59] LABS: BASOPHILS 0.1 % (0-2); EOSINOPHILS 0 % (0-7); HEMATOCRIT 31.5 % (42.0-54.0); LYMPHOCYTES 5.6 % (15-50); MCH 32.6 pg (26.0-34.0); MCHC 31.7 g/dL (31.0-37.0); MCV 102.6 fL (80.0-100.0); MEAN PLATELET VOLUME 10.1 fL (7.4-10.4); MONOCYTES 5.1 % (2-11); NEUTROPHILS 88.2 % (40-80); PLATELET COUNT 213 10x3/uL (130-400); RBC 3.07 10x6/uL (4.20-6.10)
[2017-12-13 06:26] LABS: CALCIUM 8.4 mg/dL (8.5-10.1); CARBON DIOXIDE 24.2 mmol/L (21.0-32.0); CREATININE - SERUM 1.3 mg/dL (0.6-1.3); MAGNESIUM - SERUM 1.6 mg/dL (1.8-2.4); POTASSIUM - SERUM 3.2 mmol/L (3.5-5.1)
[2017-12-13 09:44] VITALS: BP 152/92
[2017-12-13 10:33] VITALS: Ht 182.9 cm; Wt 78.0 kg
[2017-12-13 14:44] VITALS: BP 142/91
[2017-12-13 21:20] VITALS: BP 155/98
[2017-12-14 05:58] LABS: BASOPHILS 0.1 % (0-2); EOSINOPHILS 0 % (0-7); HEMATOCRIT 27.1 % (42.0-54.0); HEMOGLOBIN 8.6 g/dL (13.5-17.5); IMMATURE GRANULOCYTES 1.7 % (0-5); LYMPHOCYTES 8.1 % (15-50); MCH 32.8 pg (26.0-34.0); MCHC 31.7 g/dL (31.0-37.0); MCV 103.4 fL (80.0-100.0); MEAN PLATELET VOLUME 9.8 fL (7.4-10.4); MONOCYTES 7.7 % (2-11); NEUTROPHILS 82.4 % (40-80); PLATELET COUNT 206 10x3/uL (130-400); RBC 2.62 10x6/uL (4.20-6.10); RDW 18.8 % (11.5-14.5); WBC 13.9 10x3/uL (4.8-10.8)
[2017-12-14 06:26] VITALS: BP 140/84
[2017-12-14 06:27] LABS: ANION GAP 13.8 mmol/L (8-16); CALCIUM 8.8 mg/dL (8.5-10.1); CARBON DIOXIDE 24.2 mmol/L (21.0-32.0); CREATININE - SERUM 1.1 mg/dL (0.6-1.3); MAGNESIUM - SERUM 1.9 mg/dL (1.8-2.4)
[2017-12-14 09:19] VITALS: BP 146/85
[2017-12-14 11:36] VITALS: BP 171/96
[2017-12-14 15:30] VITALS: BP 150/87
[2017-12-14 20:00] VITALS: BP 138/84
[2017-12-15 05:28] VITALS: BP 137/91
[2017-12-15 06:56] LABS: BASOPHILS 0.1 % (0-2); EOSINOPHILS 0.3 % (0-7); HEMATOCRIT 29.1 % (42.0-54.0); HEMOGLOBIN 9.1 g/dL (13.5-17.5); IMMATURE GRANULOCYTES 1.1 % (0-5); LYMPHOCYTES 12.5 % (15-50); MCH 32.6 pg (26.0-34.0); MCHC 31.3 g/dL (31.0-37.0); MCV 104.3 fL (80.0-100.0); MEAN PLATELET VOLUME 9.6 fL (7.4-10.4); PLATELET COUNT 203 10x3/uL (130-400); RBC 2.79 10x6/uL (4.20-6.10); RDW 18.3 % (11.5-14.5); WBC 10.6 10x3/uL (4.8-10.8)
[2017-12-15 07:06] LABS: ANION GAP 13.2 mmol/L (8-16); CALCIUM 8.8 mg/dL (8.5-10.1); CARBON DIOXIDE 26.1 mmol/L (21.0-32.0); CREATININE - SERUM 1.1 mg/dL (0.6-1.3)
[2017-12-15 07:07] LABS: MAGNESIUM - SERUM 2.5 mg/dL (1.8-2.4); POTASSIUM - SERUM 3.3 mmol/L (3.5-5.1)
[2017-12-15 10:20] VITALS: BP 152/81
[2017-12-15 15:20] VITALS: BP 156/88
[2017-12-15] MEDS ORDERED: HYDROCODON-ACE1 EAC7 PO (16:39)
[2017-12-15] MEDS ORDERED: MIRALAX17 GM PO (16:40)
== END 2017-12-15 18:30 | disposition home or self-care (01) | DRG 330 ==
LOC: D.MS 07:55 → D.SDCHOLD 07:55 → D.MS 15:07
PROVIDERS: Anesthesiology; Surgery
PROC: 0DBU0ZZ Excision of Omentum, Open Approach (ICD-10-PCS; 2017-12-12)
PROC: 0DNL4ZZ Release Transverse Colon, Percutaneous Endoscopic Approach (ICD-10-PCS; 2017-12-12)
PROC: 0DTG0ZZ Resection of Left Large Intestine, Open Approach (ICD-10-PCS; principal; 2017-12-12 09:45)
DX: C18.6 Malignant neoplasm of descending colon (principal); C78.7 Secondary malignant neoplasm of liver and intrahepatic bile duct; K63.2 Fistula of intestine; I10 Essential (primary) hypertension; F17.200 Nicotine dependence, unspecified, uncomplicated

== ENCOUNTER → 2018-04-05 09:50 | Outpatient (CLI) | payer MEDICARE, BC ==
[2017-12-13 10:33] VITALS: BMI 23.3
== END | disposition home or self-care (01) ==
LOC: D.CT 09:50
DX: J93.9 Pneumothorax, unspecified (principal); C18.9 Malignant neoplasm of colon, unspecified

== ENCOUNTER 2018-07-04 11:58 | Inpatient (IN) | payer MEDICARE, BC ==
[2018-07-04] VITALS (18 sets, daily range): BP systolic 80–131; BP diastolic 58–85
[~2018-07-04] VITALS: Ht 182.9 cm; Wt 81.6 kg
[2018-07-04] MEDS ORDERED: PHENERGAN25 M1 PO (12:25)
[2018-07-04] MEDS ORDERED: ULTRAM50 MG PO (12:26)
[2018-07-04] MEDS ORDERED: POTASSIUM CHLO20 MEQ PO (12:27)
[2018-07-04] MEDS ORDERED: LISINOPRIL20 MG PO (12:31)
[2018-07-04 12:35] LABS: INR 1.63 (0.85-1.17); PROTIME 18.7 SECONDS (11.6-15.0)
[2018-07-04 12:42] LABS: HEMATOCRIT 31.7 % (42.0-54.0); HEMOGLOBIN 10.7 g/dL (13.5-17.5); MCH 33.5 pg (26.0-34.0); MCHC 33.8 g/dL (31.0-37.0); MCV 99.4 fL (80.0-100.0); MEAN PLATELET VOLUME 11.1 fL (7.4-10.4); RBC 3.19 10x6/uL (4.20-6.10); RDW 14.1 % (11.5-14.5); WBC 3.9 10x3/uL (4.8-10.8)
[2018-07-04 12:43] LABS: ALBUMIN 1.4 g/dL (3.4-5.0); ALKALINE PHOSPHATASE 77 U/L (46-116); ALT (SGPT) 54 U/L (10-68); BILIRUBIN - TOTAL 0.27 mg/dL (0.2-1.3); CALC OSMOLALITY 287 mosm/kg (275-300); CALCIUM 8.3 mg/dL (8.5-10.1); CARBON DIOXIDE 16.1 mmol/L (21.0-32.0); CHLORIDE - SERUM 102 mmol/L (98-107); CREATININE - SERUM 2.8 mg/dL (0.6-1.3); GLUCOSE 119 mg/dL (74-106); POTASSIUM - SERUM 4.3 mmol/L (3.5-5.1); PROTEIN - SERUM 5.4 g/dL (6.4-8.2); SODIUM 137 mmol/L (136-145); UREA NITROGEN 48 mg/dL (7-18); eGFR NON AFRICAN AMERICAN 24 mL/min (90-120)
[2018-07-04 12:46] LABS: PLATELET COUNT 84 10x3/uL (130-400)
[2018-07-04 12:58] LABS: CKMB 14.9 U/L (0.0-3.6); CREATINE KINASE 1770 UL (21-232)
[2018-07-04 13:00] LABS: TROPONIN-I 2.985 ng/mL (0.000-0.060)
[2018-07-04 13:11] LABS: APPEARANCE HAZY (CLEAR); COLOR YELLOW (YELLOW); NITRITE NEGATIVE (NEGATIVE); PROTEIN 2+ mg/dL (NEGATIVE); SPECIFIC GRAVITY 1.015 (1.005-1.020)
[2018-07-04 13:12] LABS: BILIRUBIN NEGATIVE (NEGATIVE); GLUCOSE NEGATIVE (NEGATIVE); KETONE NEGATIVE (NEGATIVE); UROBILINOGEN NORMAL (NORMAL); WHITE CELLS - URINE 0-5 /hpf (0-5)
[2018-07-04 13:13] LABS: BACTERIA MODERATE /hpf (NONE SEEN); EPITHELIAL CELLS NSEEN /hpf (0-5)
[2018-07-04 13:14] LABS: GRANULAR CAST 0-5 /lpf (NONE SEEN)
[2018-07-04 13:36] LABS: LYMPHOCYTES 11 % (15-50); MONOCYTES 1 % (2-11); NEUTROPHILS 71 % (40-80)
[2018-07-04 13:44] LABS: D-DIMER-QUANTITATIVE > 20.00 ug/mLFEU (0.20-0.54)
[2018-07-04 14:01] LABS: PLATELET ESTIMATE DECREASED
--- NOTE | 2018-07-04 15:10 | MORECARE ---
CASE MANAGEMENT DISCHARGE SUMMARY PATIENT: SATNAM CASTILLO UNIT: [id number] ADM DATE: 07/04/18 AGE: 68 : 48 SEX: M ROOM/BED: D.2309 AUTHOR: KALEB MURRAY PHYSICIAN: REFERRING PHYSICIAN: MEKA STATON MD DATE OF SERVICE: 07/04/18 Discharge Plan Patient Name: SATNAM CASTILLO [facility] [facility] 1950 Planned Disposition: Anticipated Discharge Date: Discharge Date: Expected LOS: Initial Reviewer: [email or web address] Initial Review Date: 07/04/2018 Generated: 07/04/18 4:10 pm Patient Name: SATNAM CASTILLO Page 16493 at 1510 All edits/amendments must be made on the electronic document DICTATION DATE: 07/04/18 1509 RADIATION ONCOLOGY MANAGER: ANIL 07/04/18 1509 RPT#: [id number] DC DATE: STATUS: ADM IN [facility] [address] [place] [address] END OF REPORT
--- NOTE | 2018-07-04 15:21 | MORECARE ---
CASE MANAGEMENT DISCHARGE SUMMARY PATIENT: AWAIS CASTILLO UNIT: [id number] ADM DATE: 07/04/18 AGE: 68 : 48 SEX: M ROOM/BED: D.2309 AUTHOR: KALEB MURRAY PHYSICIAN: REFERRING PHYSICIAN: MEKA STATON MD DATE OF SERVICE: 07/04/18 Discharge Plan Patient Name: AWAIS CASTILLO [facility] [facility] 1950 Planned Disposition: Anticipated Discharge Date: Discharge Date: Expected LOS: Initial Reviewer: [email or web address] Initial Review Date: 07/04/2018 Generated: 07/04/18 4:21 pm DCPIA - Discharge Planning Initial Assessment Updated by [email or web address]: Alicia Billingsley on 07/04/18 3:14 pm * Is the patient Alert and Oriented? No * How many steps to enter\exit or inside your home? * PCP Dr. English Dr. Georges (oncology) * Pharmacy [facility] * Preadmission Environment Home with Family * ADLs Partial Dependent * Partial ADLs (Assistance needed) Bathing * Equipment None * Other Equipment None per * List name and contact numbers for known caregivers / representatives who currently or will assist patient after discharge: Rebekah Castillo () [phone] Sarinaholly Horne (dtr) [phone] Awais Castillo (son) [phone] * Verbal permission to speak to the caregivers and representatives has been obtained from the patient. N/A * Community resources currently utilized None * Please name any agencies selected above. NA * Has this patient been hospitalized within the prior 30 days at any hospital? No Last DP export: 07/04/18 2:10 p Patient Name: AWAIS CASTILLO Page 60068 at 1521 All edits/amendments must be made on the electronic document DICTATION DATE: 07/04/18 152 ALTERNATIVE ENERGY TECHNICIAN: ANIL 07/04/18 1521 RPT#: [id number] DC DATE: STATUS: ADM IN [facility] [address] [place] [address] END OF REPORT
--- NOTE | 2018-07-04 19:40 | MORECARE ---
CASE MANAGEMENT DISCHARGE SUMMARY PATIENT: AWAIS CASTILLO UNIT: [id number] ADM DATE: 07/04/18 AGE: 68 : 48 SEX: M ROOM/BED: D.2309 AUTHOR: TERRI,DOC PHYSICIAN: REFERRING PHYSICIAN: MEKA STATON MD DATE OF SERVICE: 07/04/18 Discharge Plan Patient Name: AWAIS CASTILLO Facility: [facility]:[place] : 1950 Planned Disposition: Anticipated Discharge Date: Discharge Date: Expected LOS: Initial Reviewer: [email or web address] Initial Review Date: 07/04/2018 Generated: 07/04/18 8:39 pm DCP- Discharge Planning Updated by [email or web address]: Alicia Billingsley on 07/04/18 6:[address] CM met with patient's and daughter to discuss dc plans/needs. Patient is on a vent and gives permission to proceed with assessment with their daughter, Sarina Horne assisting. Patient is sedated, spouse gives permission to complete CM assessment. PCP: Dr. Ramirez. Pharmacy: [facility]. Emergency contact: Rebekah Castillo () [phone], Sarina Horne (dtr) [phone], Awais Castillo (son) [phone]. Partial assistance per with bathing for safety, just recently. HHS: NA. DME: None. Discussed additional services for patient prior to discharge. CM discussed Rehab, HHS, NH availability, if required. Spouse denies patient being hospitalized within the past 30 days. 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 Unsure of transportation needs at this time. DCPIA - Discharge Planning Initial Assessment Updated by [email or web address]: Alicia Billingsley on 07/04/18 3:14 pm * Is the patient Alert and Oriented? No * How many steps to enter\exit or inside your home? * PCP Dr. English Dr. Georges (oncology) * Pharmacy [facility] * Preadmission Environment Home with Family * ADLs Partial Dependent * Partial ADLs (Assistance needed) Bathing * Equipment None * Other Equipment None per * List name and contact numbers for known caregivers / representatives who currently or will assist patient after discharge: Rebekah Castillo () [phone] Sarina Horne (dtr) [phone] Awais Castillo (son) [phone] * Verbal permission to speak to the caregivers and representatives has been obtained from the patient. N/A * Community resources currently utilized None * Please name any agencies selected above. NA * Has this patient been hospitalized within the prior 30 days at any hospital? No Last DP export: 07/04/18 2:21 p Patient Name: AWAIS CASTILLO Page 72211 at 1940 All edits/amendments must be made on the electronic document DICTATION DATE: 07/04/181938 ENGINEERING PROGRAMMER: ANIL 07/04/181938 RPT#: [id number] DC DATE: STATUS: ADM IN [facility] [address] [place] [address] END OF REPORT
[2018-07-05] VITALS (80 sets, daily range): BP systolic 80–147; BP diastolic 54–99; Ht 182.9 cm; Wt 81.6 kg
[2018-07-05 04:33] LABS: HEMATOCRIT 32.5 % (42.0-54.0); HEMOGLOBIN 10.9 g/dL (13.5-17.5); MCHC 33.5 g/dL (31.0-37.0); MCV 98.5 fL (80.0-100.0); MEAN PLATELET VOLUME 10.4 fL (7.4-10.4); RDW 13.9 % (11.5-14.5)
[2018-07-05 04:38] LABS: WBC 2.4 10x3/uL (4.8-10.8)
[2018-07-05 04:39] LABS: PLATELET COUNT 47 10x3/uL (130-400)
[2018-07-05 04:51] LABS: LYMPHOCYTES 10 % (15-50); MONOCYTES 4 % (2-11); NEUTROPHILS 72 % (40-80); PLATELET ESTIMATE DECREASED
[2018-07-05 04:56] LABS: ALBUMIN 1.1 g/dL (3.4-5.0); BILIRUBIN - TOTAL 0.29 mg/dL (0.2-1.3); CREATININE - SERUM 2.9 mg/dL (0.6-1.3); PHOSPHOROUS 7.7 mg/dL (2.5-4.9)
[2018-07-05 05:23] LABS: ANION GAP 17.7 mmol/L (8-16); CALCIUM 6.9 mg/dL (8.5-10.1); CARBON DIOXIDE 21.2 mmol/L (21.0-32.0)
[2018-07-05 05:24] LABS: POTASSIUM - SERUM 4.9 mmol/L (3.5-5.1)
[2018-07-05 11:12] LABS: TROPONIN-I 3.811 ng/mL (0.000-0.060)
--- NOTE | 2018-07-05 12:31 | HP ---
PATIENT: AWAIS CASTILLO MEDICAL RECORD: [id number] ACCOUNT: [id number] LOCATION:[facility] D.2309 : 46 ADMISSION DATE: 07/04/18 PCP: BRADLY MYRICK MD HISTORY AND PHYSICAL EXAMINATION REASON FOR ADMISSION: Fall with respiratory failure and hypotension. HISTORY OF PRESENT ILLNESS: The patient is a 68-year-old male with history of stage IV colon cancer was diagnosed with progression of disease. His chemotherapy was recently changed in efforts to slow the tumor growth. His states he had marked increase in size of his liver mass, has not been eating well for the last 3 weeks. This morning he was so weak he could not stand and fell to the ground. He was conscious initially and became less conscious and was mottled. EMS was called, intubated the patient in field and gave him fluids. He was unremarkably hypotensive, has now been placed in the ICU on the ventilator under Dr. Donovan's care. Awais's states he has not had any recent fever, just pain and poor appetite and weight loss. PAST MEDICAL HISTORY: Carcinoma of the colon with stage IV currently on chemotherapy, history of cellulitis left lower extremity 06/21, carpal tunnel syndrome, lumbar discitis, essential hypertension, longstanding nicotine use, and COPD. PAST SURGICAL HISTORY: Inguinal hernia repair in the left 2011. Noninvasive cardiac stress test 2005. Hand-assisted left hemicolectomy 12/2017. FAMILY HISTORY: Father at 88 with asthma and COPD. Mother at 83 from CHF. 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 Denies any heavy alcohol use. He is and has grandchildren. ALLERGIES: BETAMETHASONE AND PENICILLIN. HOME MEDICATIONS: Ferrous sulfate 325 mg p.o. daily, fish oil 1 p.o. daily, Ultram 50 mg q.6 hours p.r.n. pain, potassium chloride 20 mEq p.o. b.i.d., MiraLax 17 grams p.o. daily, vitamin B complex 1 daily, lisinopril 20 mg a day, and current chemotherapy type is unknown. REVIEW OF SYSTEMS: GENERAL: Fatigue with continual weight loss for the last several months, worse over the last 3 weeks. No recent fever. HEENT: No recent visual change, sinus congestion, or sore throat. RESPIRATORY: He has mild short of breath on exertion, recent cough and sputum production. CARDIAC: No recent chest pain, claudication, or edema. GASTROINTESTINAL: He has had nausea without vomiting or change in stools. GENITOURINARY: Nocturia once nightly. ENDOCRINE: Denies polyuria, polydipsia, heat or cold intolerance. NEUROLOGIC: No history of stroke, TIA, vascular headaches, or seizures. INTEGUMENT: No rash or itching. The notes his skin has been mottled today. HISTORY AND PHYSICAL [id number] AWAIS CASTILLO PSYCHIATRIC: Denies depress mood. PHYSICAL EXAMINATION: VITAL SIGNS: The patient is currently intubated and sedated on the ventilator, pulse is 116, blood pressure 110/62 on pressors, pulse ox is 98% on the vent. HEENT: Normocephalic. Eyes are clear. Pupils are sluggish. Oropharynx intubated. NECK: Supple. CHEST: Equal breath sounds bilaterally. HEART: Tachycardic without murmur. ABDOMEN: Soft with active bowel sounds. Well-healed surgical scar noted. GENITOURINARY: Unremarkable. EXTREMITIES: He has 2+ pretibial edema of the knees bilaterally. He has mottling of his lower extremities and upper extremities with some ecchymosis on his left arm. NEUROLOGICAL: The patient is sedated at this time. IMAGING: CT of the head shows no intracranial abnormality. Single chest x-ray shows left basilar opacities, possibly reflecting atelectasis or infection, small left pleural effusion. CT of the cervical spine shows moderate cervical degenerative arthritis, subacute fracture of the left posterior 3rd ribs, left posterior 4th rib. LABORATORY DATA: White count is 3900 with left shift and bandemia, platelet count 84,000, H and H is 10.7 and 31.7 respectively. Chemistry shows CO2 low at 16, anion gap is elevated at 23.2, BUN 40, creatinine 2.8, and glucose 119. Lactic acid is 7. AST is 124. Creatinine kinase is 1770. CPK-MB is 14. Troponin is 2.985. Urinalysis shows 2+ protein, 10-25 red cells, 0-5 white cells, and moderate bacteria. INR is 1.63. D-dimer is elevated at 20. EKG is pending. ASSESSMENT: 1. Sepsis. 2. Hypotension from sepsis. 3. Possible pneumonia. 4. Acidosis. 5. Acute renal insufficiency. 6. Stage IV colon cancer on chemotherapy. 7. COPD. PLAN: The patient is currently in ICU with pulmonary consultation. Cultures have been obtained. Broad-spectrum IV antibiotics. Family has been interviewed and treatment course discussed and understand his potential for high morbidity. TRANSINT:[id number] Voice Confirmation ID: [id number] DOCUMENT ID: [id number] HISTORY AND PHYSICAL [id number] AWAIS CASTILLO TIMOTHY MD at 1231 CC: [id number] DICTATION DATE: 07/04/18 1715 LINSEED CAKE TRIMMER: 07/04/18 1852 ADM IN [facility] [address] [place] [address]
--- NOTE | 2018-07-05 16:12 | MORECARE ---
CASE MANAGEMENT DISCHARGE SUMMARY PATIENT: AWAIS CASTILLO UNIT: [id number] ADM DATE: 07/04/18 AGE: 68 : 48 SEX: M ROOM/BED: D.2309 AUTHOR: TERRI,DOC PHYSICIAN: REFERRING PHYSICIAN: MEKA STATON MD DATE OF SERVICE: 07/05/18 Discharge Plan Patient Name: AWAIS CASTILLO Facility: [facility]:[place] : 1950 Planned Disposition: Anticipated Discharge Date: Discharge Date: Expected LOS: Initial Reviewer: [email or web address] Initial Review Date: 07/04/2018 Generated: 07/05/18 5:12 pm DCP- Discharge Planning Updated by [email or web address]: Alicia Billingsley on 07/04/18 6:[address] CM met with patient's and daughter to discuss dc plans/needs. Patient is on a vent and gives permission to proceed with assessment with their daughter, Sarina Horne assisting. Patient is sedated, spouse gives permission to complete CM assessment. PCP: Dr. Ramirez. Pharmacy: [facility]. Emergency contact: Rebekah Castillo () [phone], Sarina Horne (dtr) [phone], Awais Castillo (son) [phone]. Partial assistance per with bathing for safety, just recently. HHS: NA. DME: None. Discussed additional services for patient prior to discharge. CM discussed Rehab, HHS, NH availability, if required. Spouse denies patient being hospitalized within the past 30 days. 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 Unsure of transportation needs at this time. DCPIA - Discharge Planning Initial Assessment Updated by [email or web address]: Alicia Billingsley on 07/04/18 3:14 pm * Is the patient Alert and Oriented? No * How many steps to enter\exit or inside your home? * PCP Dr. English Dr. Georges (oncology) * Pharmacy [facility] * Preadmission Environment Home with Family * ADLs Partial Dependent * Partial ADLs (Assistance needed) Bathing * Equipment None * Other Equipment None per * List name and contact numbers for known caregivers / representatives who currently or will assist patient after discharge: Rebekah Castillo () [phone] Sarina Horne (dtr) [phone] Awais Casitllo (son) [phone] * Verbal permission to speak to the caregivers and representatives has been obtained from the patient. N/A * Community resources currently utilized None * Please name any agencies selected above. NA * Has this patient been hospitalized within the prior 30 days at any hospital? No Last DP export: 07/04/18 6:39 p Patient Name: AWAIS CASTILLO Page 74056 at 1612 All edits/amendments must be made on the electronic document DICTATION DATE: 07/05/18 161 ARCHITECT NAVAL: ANIL 07/05/18 161 RPT#: [id number] DC DATE: STATUS: ADM IN [facility] [address] [place] [address] END OF REPORT
[2018-07-06] VITALS (32 sets, daily range): BP systolic 100–124; BP diastolic 48–79
[2018-07-06 03:55] LABS: BASOPHILS 0 % (0-2); EOSINOPHILS 0 % (0-7); HEMATOCRIT 26.5 % (42.0-54.0); IMMATURE GRANULOCYTES 4.1 % (0-5); LYMPHOCYTES 8.9 % (15-50); MCV 97.1 fL (80.0-100.0); MEAN PLATELET VOLUME 11.3 fL (7.4-10.4); MONOCYTES 6.1 % (2-11); NEUTROPHILS 80.9 % (40-80); RBC 2.73 10x6/uL (4.20-6.10); RDW 14.2 % (11.5-14.5); WBC 2.5 10x3/uL (4.8-10.8)
[2018-07-06 04:06] LABS: PLATELET COUNT 70 10x3/uL (130-400)
[2018-07-06 04:08] LABS: INR 1.4 (0.85-1.17); PROTIME 16.6 SECONDS (11.6-15.0)
[2018-07-06 04:15] LABS: ANION GAP 19.2 mmol/L (8-16); CARBON DIOXIDE 20.3 mmol/L (21.0-32.0); POTASSIUM - SERUM 4.5 mmol/L (3.5-5.1)
[2018-07-06 04:19] LABS: CALCIUM 6.7 mg/dL (8.5-10.1)
[2018-07-06 10:59] LABS: ALBUMIN 1.4 g/dL (3.4-5.0); BILIRUBIN - DIRECT 0.16 mg/dL (0.00-0.30); BILIRUBIN - INDIRECT 0.16 mg/dL (0.00-1.00); BILIRUBIN - TOTAL 0.32 mg/dL (0.2-1.3); PROTEIN - SERUM 5.2 g/dL (6.4-8.2); TROPONIN-I 3.699 ng/mL (0.000-0.060)
--- NOTE | 2018-07-06 13:47 | EC ---
PATIENT:SATNAM CASTILLO DATE OF SERVICE: 07/04/18 SEX: M MEDICAL RECORD: [id number] DATE OF : 46 LOCATION:[facility] D230 AGE OF PATIENT: 68 ADMISSION DATE: 07/04/18 REFERRING PHYSICIAN: INTERPRETING PHYSICIAN: DEYANIRA PARKS MD ECHOCARDIOGRAM REPORT ECHO CHARGES 4 ECHO COMPLETE Date: 07/05/18 CLINICAL DIAGNOSIS: SHOCK/SEPTIC/HTN ECHOCARDIOGRAPHIC MEASUREMENTS (adult normal given) AC root (d.<3.7cm) cm LV Septum d (<1.2 cm> 1.4 cm Valve Excursion cm LV Septum (systole) 1.5 cm Left Atria (s.<4.0cm> 4.1 cm LVPW d(<1.2cm) 1.5 cm RV (d.<2.3cm) 3.4 cm LVPW (sytole) 1.6 cm LV diastole(<5.6CM) 5.1 cm MV E-F(>70mm/sec) cm LV systole 4.0 cm LVOT Diameter 1.7 cm MV exc.(>10mm) 1.3 cm Est.ejection fraction (50-75%) % DOPPLER: LVIT cm/sec A 85.0 cm/sec E 68.0 cm/sec LA cm/sec RVSP 25 mmHg LVOT 97 cm/sec AOP1/2T m/s Asc. Ao 181 cm/sec RVOT cm/sec RA cm/sec PA cm/sec AV Gradient Peak 13.05mmHg AV Mean 7.27 mmHg AV Area 1.2 cm MV Gradient Peak 4.78 mmHg MV Mean 2.02 mmHg MV Area cm COMMENTS: Child Welfare Manager: 2 BELINDA GARCIA Combination Man: 2 Dr. Aguayo TAPE# PACS Pericardial Effusion Y DATE OF SERVICE: Adequate 2D, color flow, spectral Doppler, and M-Mode. Mild LVH. LV internal dimension is normal. Wall motion is normal. EF is greater than or equal to 55%. Aortic valve is tricuspid. No evidence of stenosis on Doppler interrogation. Left atrium is upper limits of normal at 4.1 cm. Mitral valve shows no prolapse. Trace MR. Right-sided chambers grossly normal. Trace TR. TRANSINT:[id number] Voice Confirmation ID: [id number] DOCUMENT ID: [id number] ECHOCARDIOGRAM REPORT [id number] CASTILLO,SATNAM O DEYANIRA PARKS MD at 1347 CC: [id number] DICTATION DATE: 07/05/18 141 SUBSTANCE ABUSE TECHNICIAN: 07/05/18 1612 ADM IN [facility] [address] [place] [id number]
[2018-07-07] VITALS (23 sets, daily range): BP systolic 92–119; BP diastolic 54–75
[2018-07-07 05:10] LABS: INR 1.47 (0.85-1.17); PROTIME 17.2 SECONDS (11.6-15.0)
[2018-07-07 05:11] LABS: ANION GAP 17.3 mmol/L (8-16); CALCIUM 7.2 mg/dL (8.5-10.1); CARBON DIOXIDE 21.9 mmol/L (21.0-32.0); CREATININE - SERUM 4.6 mg/dL (0.6-1.3); POTASSIUM - SERUM 4.2 mmol/L (3.5-5.1)
[2018-07-07 05:19] LABS: HEMATOCRIT 26.3 % (42.0-54.0); MCH 32.8 pg (26.0-34.0); MCHC 34.2 g/dL (31.0-37.0); MEAN PLATELET VOLUME 12.1 fL (7.4-10.4); RBC 2.74 10x6/uL (4.20-6.10); RDW 14.4 % (11.5-14.5)
[2018-07-07 05:21] LABS: WBC 1.5 10x3/uL (4.8-10.8)
[2018-07-07 05:22] LABS: PLATELET COUNT 42 10x3/uL (130-400)
[2018-07-07 06:02] LABS: EOSINOPHILS 1 % (0-7); LYMPHOCYTES 10 % (15-50); MONOCYTES 6 % (2-11); NEUTROPHILS 81 % (40-80); PLATELET ESTIMATE DECREASED
[2018-07-08] VITALS (11 sets, daily range): BP systolic 67–101; BP diastolic 47–72
[2018-07-08 10:11] LABS: HEPATITIS C ANTIBODY <0.1 (0.0-0.9)
--- NOTE | 2018-07-10 08:51 | MORECARE ---
CASE MANAGEMENT DISCHARGE SUMMARY PATIENT: AWAIS CASTILLO UNIT: [id number] ADM DATE: 07/04/18 AGE: 68 : 48 SEX: M ROOM/BED: D.2309 AUTHOR: TERRI,DOC PHYSICIAN: REFERRING PHYSICIAN: MEKA STATON MD DATE OF SERVICE: 07/10/18 Discharge Plan Patient Name: AWAIS CASTILLO Facility: [facility]:[place] : 1950 Planned Disposition: Anticipated Discharge Date: Discharge Date: 07/08/2018 Expected LOS: Initial Reviewer: [email or web address] Initial Review Date: 07/04/2018 Generated: 07/10/18 9:50 am DCP- Discharge Planning Updated by [email or web address]: Alicia Billingsley on 07/04/18 6:[address] CM met with patient's and daughter to discuss dc plans/needs. Patient is on a vent and gives permission to proceed with assessment with their daughter, aSrina Horne assisting. Patient is sedated, spouse gives permission to complete CM assessment. PCP: Dr. Ramirez. Pharmacy: [facility]. Emergency contact: Rebekah Castillo () [phone], Sarina Horne (dtr) [phone], Awais Castillo (son) [phone]. Partial assistance per with bathing for safety, just recently. HHS: NA. DME: None. Discussed additional services for patient prior to discharge. CM discussed Rehab, HHS, NH availability, if required. Spouse denies patient being hospitalized within the past 30 days. 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 Unsure of transportation needs at this time. DCPIA - Discharge Planning Initial Assessment Updated by [email or web address]: Alicia Billingsley on 07/04/18 3:14 pm * Is the patient Alert and Oriented? No * How many steps to enter\exit or inside your home? * PCP Dr. English Dr. Georges (oncology) * Pharmacy [facility] * Preadmission Environment Home with Family * ADLs Partial Dependent * Partial ADLs (Assistance needed) Bathing * Equipment None * Other Equipment None per * List name and contact numbers for known caregivers / representatives who currently or will assist patient after discharge: Rebekah Castillo () [phone] Sarina Horne (dtr) [phone] Awais Castillo (son) [phone] * Verbal permission to speak to the caregivers and representatives has been obtained from the patient. N/A * Community resources currently utilized None * Please name any agencies selected above. NA * Has this patient been hospitalized within the prior 30 days at any hospital? No Last DP export: 07/05/18 3:12 pm Patient Name: AWAIS CASTILLO Page 19445 at 0851 All edits/amendments must be made on the electronic document DICTATION DATE: 07/10/18849 LAYER OFF: ANIL 07/10/1850 RPT#: [id number] DC DATE:07/08/18 STATUS: DIS IN [facility] [address] [place] [address] END OF REPORT
== END 2018-07-08 15:05 | DRG 871 ==
LOC: D.ER 11:58 → D.EDHOLD 14:32 → D.ICU 14:32
PROVIDERS: Family Medicine; Internal Medicine Medical Oncology; Internal Medicine Nephrology; Internal Medicine Pulmonary Disease; ADMIT Family Medicine; ATTEND Family Medicine
PROC: 5A1945Z Respiratory Ventilation, 24-96 Consecutive Hours (ICD-10-PCS; principal; 2018-07-04)
PROC: 02HV33Z Insertion of Infusion Device into Superior Vena Cava, Percutaneous Approach (ICD-10-PCS; 2018-07-06)
DX: A41.01 Sepsis due to Methicillin susceptible Staphylococcus aureus (principal); E43 Unspecified severe protein-calorie malnutrition; G93.41 Metabolic encephalopathy; I21.4 Non-ST elevation (NSTEMI) myocardial infarction; J18.1 Lobar pneumonia, unspecified organism; J96.01 Acute respiratory failure with hypoxia; D65 Disseminated intravascular coagulation [defibrination syndrome]; I63.89 Other cerebral infarction; N17.0 Acute kidney failure with tubular necrosis; C18.9 Malignant neoplasm of colon, unspecified; C78.7 Secondary malignant neoplasm of liver and intrahepatic bile duct; E87.2 Acidosis; R57.9 Shock, unspecified; E86.0 Dehydration; J44.9 Chronic obstructive pulmonary disease, unspecified; F17.200 Nicotine dependence, unspecified, uncomplicated; Z66 Do not resuscitate; D72.819 Decreased white blood cell count, unspecified